=== PATIENT | female | born 1945 | race African-American/Black ===

== ENCOUNTER 2023-05-09 13:13 | Observation (INO) | payer OTHER ==
[2023-05-09] MEDS ORDERED: LACTATED RINGERS SOLUTION 1000 ML INFUS.BAG IV ONE (14:53)
[2023-05-09 15:08] LABS: BASO % 0.7 % (0-2.0); EOS % 0.1 % (0-4.5); HEMATOCRIT 36.8 % (32.4-45.2); HEMOGLOBIN 11.8 GM/dL (10.7-15.3); LYMPH % 14.5 % (8-40); MCH 29.2 pg (25.7-33.7); MEAN CELL VOLUME 91.4 fl (80-96); MEAN PLT VOLUME 8.5 fl (7.5-11.1); MONO % 7.9 % (3.8-10.2); NEUT % 76.8 % (42.8-82.8); PLATELET COUNT 293 10^3/uL (134-434); RBC 4.03 M/mm3 (3.60-5.2); RDW 13.6 % (11.6-15.6); WHITE BLOOD COUNT 6.1 K/mm3 (4.0-10.0)
[2023-05-09 15:14] LABS: INR 1.04 (0.83-1.09); PROTHROMBIN TIME (PATIENT) 12.1 SEC (9.7-13.0)
[2023-05-09 15:17] LABS: ACTIVATED PTT 33.3 SECONDS (25.2-36.5)
[2023-05-09 15:46] LABS: POTASSIUM 4.1 mmol/L (3.5-5.1)
[2023-05-09 15:47] LABS: ALBUMIN 4.1 g/dl (3.4-5.0); BLOOD UREA NITROGEN 50.1 mg/dL (7-18)
[2023-05-09 15:49] LABS: CALCIUM 9.5 mg/dL (8.5-10.1)
[2023-05-09 15:50] LABS: CREATININE 2.5 mg/dL (0.55-1.3); MAGNESIUM 2.6 mg/dL (1.8-2.4)
[2023-05-09 15:52] LABS: BILIRUBIN,TOTAL 0.3 mg/dL (0.2-1); TOT PROT 7.8 g/dl (6.4-8.2)
[2023-05-09 15:58] LABS: N-TERMINAL BNP 207.6 pg/ml (5-450)
[2023-05-09 18:43] LABS: PH,URINE 5.5 (5.0-8.0); URINE APPEARANCE CLEAR; URINE BILIRUBIN NEGATIVE (NEGATIVE); URINE COLOR YELLOW; URINE GLUCOSE (UA) TRACE (NEGATIVE); URINE KETONE NEGATIVE (NEGATIVE); URINE LEUK ESTERASE NEGATIVE (NEGATIVE); URINE NITRITE NEGATIVE (NEGATIVE); URINE PROTEIN TRACE (NEGATIVE); URINE UROBILINOGEN 0.2 mg/dL (0.2-1.0)
[2023-05-09 20:52] LABS: POTASSIUM 3.6 mmol/L (3.5-5.1)
[2023-05-09 20:53] LABS: CALCIUM 8.7 mg/dL (8.5-10.1)
[2023-05-09 20:54] LABS: BLOOD UREA NITROGEN 48.2 mg/dL (7-18)
[2023-05-09 20:57] LABS: CREATININE 2.3 mg/dL (0.55-1.3)
[2023-05-10 03:37] VITALS: BMI 21.4
[2023-05-10 08:38] LABS: BASO % 0.7 % (0-2.0); EOS % 0.4 % (0-4.5); HEMATOCRIT 33.6 % (32.4-45.2); HEMOGLOBIN 10.8 GM/dL (10.7-15.3); LYMPH % 30.9 % (8-40); MCH 29.4 pg (25.7-33.7); MCHC 32.1 g/dl (32.0-36.0); MEAN CELL VOLUME 91.7 fl (80-96); MEAN PLT VOLUME 8.2 fl (7.5-11.1); MONO % 11.9 % (3.8-10.2); NEUT % 56.1 % (42.8-82.8); PLATELET COUNT 255 10^3/uL (134-434); RBC 3.67 M/mm3 (3.60-5.2); RDW 13.6 % (11.6-15.6); WHITE BLOOD COUNT 4.1 K/mm3 (4.0-10.0)
[2023-05-10 09:36] LABS: ALBUMIN 3.5 g/dl (3.4-5.0); BILIRUBIN,TOTAL 0.3 mg/dL (0.2-1); BLOOD UREA NITROGEN 38.8 mg/dL (7-18); CALCIUM 9.4 mg/dL (8.5-10.1); CREATININE 1.9 mg/dL (0.55-1.3); POTASSIUM 3.7 mmol/L (3.5-5.1); TOT PROT 6.9 g/dl (6.4-8.2)
[2023-05-10] MEDS ORDERED: SPIRONOLACTONE 25 MG TABLET PO SCH (10:00)
[2023-05-10] MEDS: ATENOLOL 50 MG TABLET (FP) PO SCH (10:13)
[2023-05-10] MEDS: NIFEdipine E.R 60 MG TABLET PO SCH (10:13)
[2023-05-10] MEDS: CINACALCET HCL 30 MG TAB (FP) PO SCH (11:52)
[2023-05-10] MEDS ORDERED: DEXTROSE 5%-0.45% SALINE 1,000 ML IV SCH (12:30)
[2023-05-11 09:38] VITALS: BP 136/72; PULSE 78; RESP 17; TEMP 98.6
[2023-05-11] MEDS: NIFEdipine E.R 60 MG TABLET PO SCH (09:40)
[2023-05-11] MEDS: ATENOLOL 50 MG TABLET (FP) PO SCH (09:40)
[2023-05-11] MEDS: CINACALCET HCL 30 MG TAB (FP) PO SCH (09:41)
== END 2023-05-11 13:25 | disposition home or self-care (01) ==
LOC: JER 13:13 → JERBED 15:39 → J4W 23:39
PROVIDERS: ADMIT Internal Medicine; ATTEND Internal Medicine
PROC: 3E033GC Introduction of Other Therapeutic Substance into Peripheral Vein, Percutaneous Approach (ICD-10-PCS; principal; 2023-05-09)
PROC: 3E0337Z Introduction of Electrolytic and Water Balance Substance into Peripheral Vein, Percutaneous Approach (ICD-10-PCS; 2023-05-09)
DX: I12.9 Hypertensive chronic kidney disease with stage 1 through stage 4 chronic kidney disease, or unspecified chronic kidney disease (principal); N18.9 Chronic kidney disease, unspecified; R55 Syncope and collapse; W18.39XA Other fall on same level, initial encounter; Y93.89 Activity, other specified; Y92.410 Unspecified street and highway as the place of occurrence of the external cause
CPT/HCPCS: 0241U-QW; 36415; 70450-TC; 71045-TC-FY; 72125-TC; 80048; 80053; 80061; 81003; 83735; 83880; 84443; 84484; 85025; 85610; 85730; 87086; 93005; 93010; 93306-TC; 93880-TC; 96361; 96365; 99285-25; G0378